=== PATIENT | female | born 1980 | race Caucasian/White ===

== ENCOUNTER 2019-08-19 05:33 | Day surgery (SDC) ==
[2019-08-13 15:43] LABS: BASO# 0.03 X1000 (0.0-0.2); BASO% 0.4 % (0.0-0.8); EOS# 0.12 X1000 (0.0-0.7); EOS% 1.6 % (0.0-10.0); HEMATOCRIT 41.5 % (37.0-47.0); HEMOGLOBIN 13.8 g/dL (12.0-16.0); LYMPH# 2.46 X1000 (1.2-3.4); LYMPH% 32.7 % (20.5-51.1); MCH 30.7 PG (27-31); MCHC 33.3 g/dL (33-37); MCV 92.2 FL (81-99); MONO# 0.38 X1000 (0.11-0.59); MONO% 5.1 % (1.7-9.3); NEUT# 4.53 X1000 (1.4-6.5); NEUT% 60.2 % (42.2-75.2); PLT 333 X1000 (130-400); RDW 12.5 % (11.5-14.5); WBC 7.52 X1000 (4.8-10.8)
--- NOTE | 2019-08-18 09:05 | HISTORY AND PHYSICAL ---
HISTORY: The patient is a 38-year-old female who had been followed by Mukul Watson , who is having worsening symptomatic pelvic organ prolapse. Upon evaluation she was found to have stage II prolapse with hypermobility of the urethrovesical neck greater than 45 degrees of rotation. However, she is also noted to be HIV positive and she is wishing to proceed with surgical intervention for correction of her prolapse. She refused pessary management. The risks and benefits of sacrocolpopexy with supracervical hysterectomy and mid urethral sling were explained at length and then again on a return visit at the patient's request. She is wishing to proceed with surgical intervention. PAST MEDICAL HISTORY: Negative for diabetes, hypertension, or asthma. Positive for bipolar disease and depressive syndrome and she is actually on disability because of this. PAST SURGICAL HISTORY: Positive for bilateral tubal ligation she is noted to be a para 1-0-0-1. ALLERGIES: Fluoroquinolones and sulfa. MEDICINES: Rizatriptan benzoate 10, spironolactone 50, sumatriptan 50, venlafaxine ER 150, Xi 180, Nexium 20, hydroxyzine 25, lamotrigine 150, [place] 5. [place] Thyroid 30, methocarbamol 50, and meloxicam 15. SOCIAL HISTORY: Positive for tobacco with daily 1 pack usage. Occasional ETOH. Negative for drugs. FAMILY HISTORY: Noncontributory. PHYSICAL EXAMINATION: GENERAL: Body mass index is 31. HEENT: Normocephalic, atraumatic. PERRLA. Extraocular movements are intact, no thyromegaly. CV: Regular rate and rhythm without murmur, gallop, or rub. PULMONARY: Clear to auscultation and percussion. ABDOMEN: Soft. : Shows pop to stage II prolapse. The leading edge is BA. However, point C is half way down the vaginal canal and she is wishing to proceed with surgical intervention.Neurologic: Afocal. Extremities: Without clubbing, cyanosis, or edema. ASSESSMENT AND PLAN: Patient with advanced prolapse, who is having dyspareunia and worsening pain is wishing to proceed with surgical intervention. The risks and benefits were discussed at length. She understands and is wishing to proceed with surgical intervention. cc: Ish Crump MD
[2019-08-19] MEDS ORDERED: KEFZOL 1 GM/D5W 2 GM/100 ML IVPB ONE (06:07)
[2019-08-19] MEDS ORDERED: REGLAN ONE (06:07)
[2019-08-19] MEDS ORDERED: PEPCID ONE (06:07)
[2019-08-19] MEDS ORDERED: LR 1,000 ML ONE ×3 (06:08→11:29)
[2019-08-19] MEDS ORDERED: XYLOCAINE-MPF 2% ONE (06:14)
[2019-08-19] MEDS ORDERED: DIPRIVAN 1% ONE (06:14)
[2019-08-19] MEDS ORDERED: VERSED ONE (06:22)
[2019-08-19] MEDS ORDERED: D10W 1,000 ML ONE (06:33)
[2019-08-19] MEDS ORDERED: METROGEL-VAGINAL 0.75% GEL ONE (06:33)
[2019-08-19] MEDS ORDERED: MARCAINE 0.25% PF/EPI 1:200,000 ONE (06:33)
--- NOTE | 2019-08-19 06:41 | H&P REVIEW ---
H&P Update H&P Review: H&P was reviewed and patient was examined, No change has occurred in the patient's condition
[2019-08-19] MEDS ORDERED: EPHEDRINE ONE (07:04)
[2019-08-19] MEDS ORDERED: FENTANYL ONE (07:14)
[2019-08-19] MEDS ORDERED: ZOFRAN ONE (07:18)
[2019-08-19] MEDS ORDERED: OFIRMEV 1000 MG/ISOTONIC SOLN 1,000 MG/100 ML BOTTLE ONE (07:18)
[2019-08-19] MEDS ORDERED: DECADRON ONE ×2 (07:18→07:47)
[2019-08-19] MEDS ORDERED: TORADOL ONE (07:20)
[2019-08-19] MEDS ORDERED: NEOSTIGMINE ONE (07:48)
[2019-08-19] MEDS ORDERED: ROBINUL ONE (07:48)
[2019-08-19 08:30] LABS: URINE SOURCE CATH
[2019-08-19 08:40] LABS: BILIRUBIN URINE NEGATIVE (NEGATIVE); BLOOD URINE NEGATIVE (NEGATIVE); COLOR YELLOW; GLUCOSE URINE NEGATIVE (NEGATIVE); KETONE URINE NEGATIVE (NEGATIVE); LEUKOCYTES URINE NEGATIVE (NEGATIVE); NITRITE URINE NEGATIVE (NEGATIVE); PH URINE 7.5; PROTEIN URINE NEGATIVE (NEGATIVE); TURBIDITY URINE CLEAR (CLEAR); UROBILINOGEN URINE NORMAL (NORMAL)
[2019-08-19 08:41] LABS: UR EPITHELIAL CELLS <10 /HPF (<10); URINE BACTERIA NEGATIVE /HPF; URINE RBC <10 /HPF (<10); URINE WBC <10 /HPF (<10)
[2019-08-19] MEDS ORDERED: KETAMINE ONE (09:24)
[2019-08-19] MEDS ORDERED: ZEMURON ONE ×2 (09:44)
[2019-08-19] MEDS ORDERED: LASIX ONE (10:07)
[2019-08-19] MEDS ORDERED: DILAUDID ONE (10:22)
[2019-08-19] MEDS ORDERED: ROBAXIN PO PRN (11:58)
[2019-08-19] MEDS ORDERED: MAXALT PO PRN (11:58)
[2019-08-19] MEDS ORDERED: IMITREX PO PRN (11:58)
[2019-08-19] MEDS: LR 1,000 ML IV SCH ×2 (13:24→18:59)
[2019-08-19] MEDS: TORADOL IV SCH ×2 (13:27→18:59)
[2019-08-19] MEDS: LAMICTAL PO SCH (15:43)
[2019-08-19] MEDS: ATARAX PO SCH ×2 (15:43→20:27)
[2019-08-19] MEDS: COLACE PO SCH ×2 (15:43→20:27)
[2019-08-19] MEDS: EFFEXOR PO SCH (15:45)
[2019-08-19] MEDS: PRILOSEC PO SCH (15:45)
[2019-08-19] MEDS: PERIDEX MT SCH ×2 (15:45→20:27)
[2019-08-19] MEDS: ALDACTONE PO SCH (15:45)
[2019-08-19] MEDS: NORCO-5 PO PRN (15:46)
--- NOTE | 2019-08-19 19:55 | OPERATIVE NOTE ---
PROCEDURE DATE: 08/19/2019 PREOPERATIVE DIAGNOSIS: Symptomatic pelvic organ prolapse. POSTOPERATIVE DIAGNOSIS: Symptomatic pelvic organ prolapse. PROCEDURE: DA Jennifer supracervical hysterectomy, abdominal sacrocolpopexy and mid urethral sling with Obtryx. SURGEON: Ish Crump MD. SECTION LEADER: Cj Robles. ESTIMATED BLOOD LOSS: 40 mL. HISTORY: The patient is a 38-year-old female who had been having increasing problems symptomatic pelvic organ prolapse who was admitted for surgical intervention. OPERATIVE PROCEDURE: Patient taken to operating room placed supine position. After adequate general anesthesia obtained she is placed in low Yellofin stirrups. Her abdomen and vagina was prepped and draped in the usual fashion. A supraumbilical incision was made after infiltration of local anesthetic 0.25% Marcaine with epinephrine and 12 mm port and sheath were introduced through this incision into the abdominal cavity. Pelvic contents were visualized therefore insufflation with CO2 an intraabdominal pressure 14 was performed. Left-sided ports placed under direct visualization after infiltration of local anesthetic and then the right-sided ports were placed in a similar fashion as well. Assistance port was noted to be on the right-hand side and this is an 11 mm port. At this time, the patient is placed in deep Trendelenburg position and EEA sizers were placed within the vagina and the anus and Alamo catheter was placed. Robot was docked. Hot scissors in the right hand, PK bipolar device was in the left hand and a single-tooth tenaculum was utilized in the 3rd arm. With the robot docked we then grasped the uterus at the fundus and elevated out of the pelvis. We then identified the distal portion of the fallopian tube on the left-hand side. Nursing services used the assistance port to elevate the fallopian tube away from the ovary. We clamped, cauterized and cut the mesosalpinx and continued in clamp, cauterize and cut fashion through the mesosalpinx, the uteroovarian pedicle, the round ligament and then down the cardinal ligament in a typical fashion to the peritoneal fold. We then began the anterior peritoneal dissection dropping the bladder below the operative site and opening more room for the ureter away from the uterine vessels. We then clamped and cauterized the vessels on the left-hand side at multiple sites. We then turned our attention towards the right hand side, again elevating the fallopian tube distally away from the ovary. We clamped, cauterized and cut the mesosalpinx and continued in a similar fashion through the uteroovarian pedicle, the round ligament and then down the cardinal ligament to the peritoneal fold. We continued our peritoneal dissection and dropped the ureter on the right-hand side below the operative site. We continued with the vesicovaginal dissection as well to drop the bladder below the cervical stump. At this time we clamped, cauterized and cut the vessels on the right-hand side then went back to left-hand side clamping, cauterizing, cutting the vessels along the left-hand side. We used a single blade of the hot scissors to begin cutting across the posterior portion of the uterus at the insertion of the uterosacral ligaments and continued until we had extirpation of the corpus of the uterus from the cervical stump. The corpus of the uterus was then placed in the appendiceal bed and we regrasped the cervical stump with the single-toothed tenaculum elevating it out of the pelvis this assisted with dissection of the vesicovaginal plane. We did this sharply with primarily sharp dissection and small amounts of cautery. We got all the way down close to the urethrovesical neck and opened our space laterally to provide placement of the mesh. We then turned our attention toward the posterior compartment, developed the rectovaginal space by scissoring the EEA sizers and opening this space. We cut into this area sharply and dissected down approximately 8 to 10 cm in the posterior compartment. We had approximately 8 to 10 cm in the anterior compartment as well. We then went up the sacral promontory. We repositioned the 3rd arm after changing it out to Cardiere grasper. We deviated the descending colon laterally exposing the midportion of the sacral promontory. We elevated the peritoneum above this, opened this area sharply were able to dissect down easily to the anterior longitudinal ligament. We then created our tunnel extending from the ligament all the way down between the colon on the right-hand side and the ureter on the right-hand side to our prior dissection in the posterior compartment. We then left the console and trimmed our mesh in the appropriate fashion. We had approximately 8 cm anteriorly and approximately 8 cm posteriorly. We placed the mesh intraperitoneally and starting in the vesicovaginal space we secured the mesh to the anterior vaginal mucosa with interrupted 2.0 [place]- Brandin sutures. All suture knots were thrown with initial surgeon's throw and 4 half throws after this. We placed approximately 12 knots anteriorly, 2 knots across the cervical stump and then approximately 8 to 10 sutures in the posterior compartment securing the mesh smoothly in all compartments. Third arm was brought up to the sacral promontory and using the EEA sizer to elevate the cervix towards the promontory we placed 2 sutures through the 3rd arm of the mesh into the anterior longitudinal ligament paying attention to the vasculature as well as to the depth of the needle to not cause injury to any of the disk or any of the nerves in that area. Two sutures easily placed and excessive mesh was trimmed for the 3rd arm. We then turned our attention towards reperitonealization using a V-Loc suture and starting at the promontory. We closed the peritoneum across the third arm down to the bifurcation. We then pursestring sutured anterior to posterior closing all the space around the 2 distal arms. We then trimmed off excessive suture. Copious amounts irrigation was performed, hemostasis was observed throughout. We brought the corpus of uterus down into the pelvis and then undocked the robot removing the robot. We changed our equipment to a grasper in 1 port and then the morcellator was placed in the assistance port and it was placed under direct visualization. Maintaining visualization of the blade throughout we morcellated the corpus of the uterus with approximately 3 to 4 large pieces. We saw 2 smaller pieces that were easily removed. We again performed copious amounts irrigation and hemostasis was continued to be observed. Decision was made to terminate this portion the procedure. We used a Tomas-Randal closure system to close the fascia and deep layers of both the camera port and the assistance port and after deflating the abdomen of all the CO2, the remaining skin incisions as well as those 2 skin incisions were closed with 4-0 Vicryl ligature in subcuticular fashion by nursing services, surgical glue was placed. Vaginally we performed examination noting excellent support apically, anteriorly and posteriorly. The urethra was grasped proximally and distally with Allis clamps and approximately 8-10 mL of the same local anesthetic was injected for hydrodissection. A sagittal incision was made. We dissected up towards the 10 o'clock and 2 o'clock position for the ischial pubic ramus and identification of the obturator canal. Based on the bony landmarks of the ischial pubic ramus and the insertion the adductor longus a stab incision was initially made on the left-hand side. The halo device was introduced through this incision through the obturator canal to the engine room operator's finger which directed the needle out. The mesh was attached to it, was retracted back through the skin. This was performed on the contralateral side in a similar fashion. Cystoscope was then placed within the bladder. The Alamo catheter had already been removed. The bladder was filled approximately 250, 300 mL of D10. Both ureters were effluxing well. There was no evidence of any abnormalities within the bladder mucosa. There was no evidence of any suture placement. There was no evidence of any mesh from the sling. Cystoscope was removed and Shahida clamp was placed midurethral position. Tape was brought up with Shahida clamp, blue tag was excised and sheaths were easily removed. There was no tension on the midurethral sling whatsoever. The midurethral incision was closed with running locking 2-0 Vicryl ligature. Sponge count, needle counts correct x3. The Alamo catheter was replaced. The patient was taken out of the low adjustable stirrups, she was awakened, taken recovery room with vital signs stable. cc: Ish Crump MD
[2019-08-19] MEDS ORDERED: ZOFRAN ODT PO PRN (19:56)
--- NOTE | 2019-08-19 20:36 | PROGRESS NOTE ---
DATE: 08/19/2019 TIME: 4:30 p.m. SUBJECTIVE: Patient is alert and oriented x2. Afebrile. Vital signs stable. Urine output is adequate and clear. Incisions are dry. ASSESSMENT AND PLAN: Routine postoperative care. We will plan on discharge in a.m. after a voiding trial. cc: Ish Crump MD
[2019-08-19] MEDS ORDERED: PROMETRIUM PO SCH (21:00)
[2019-08-20] MEDS: TORADOL IV SCH ×2 (01:20→06:38)
[2019-08-20] MEDS: LR 1,000 ML IV SCH ×2 (01:20→05:51)
[2019-08-20 07:49] VITALS: BP 118/69
[2019-08-20] MEDS: LAMICTAL PO SCH (09:11)
[2019-08-20] MEDS: PERIDEX MT SCH (09:11)
[2019-08-20] MEDS: COLACE PO SCH (09:12)
[2019-08-20] MEDS: ALDACTONE PO SCH (09:12)
[2019-08-20] MEDS: PRILOSEC PO SCH (09:12)
[2019-08-20] MEDS: EFFEXOR PO SCH (09:13)
[2019-08-20] MEDS: ATARAX PO SCH (09:13)
[2019-08-20] MEDS: NORCO-5 PO PRN (09:49)
--- NOTE | 2019-08-21 06:05 | DISCHARGE SUMMARY ---
ADMISSION DATE: 08/19/2019 DISCHARGE DATE: 08/20/2019 PRINCIPAL DIAGNOSIS: Pelvic organ prolapse. PROCEDURE: Robotic abdominal sacrocolpopexy with supracervical hysterectomy and abdominal sacrocolpopexy. HISTORY: The patient is a 38-year-old female who had been managed in the past conservatively and is now wishing to proceed to surgical correction of her pelvic organ prolapse. The risks and benefits of this have been explained at length and she wished to proceed. HOSPITAL COURSE: Patient underwent the above-stated procedure. Blood loss at time was approximately 50 mL. Postoperative course has been uncomplicated. She is currently undergoing voiding trial, and will be discharged home with instructions for followup in 3 weeks. DISCHARGE MEDICATIONS: [place] and Colace. DISCHARGE DIET AND ACTIVITY: She was instructed on regular diet and decreased activity. cc: Ish Crump MD
== END 2019-08-20 11:41 | disposition home or self-care (01) ==
LOC: OR 05:33 → 4N 05:33 → OR 08-20 11:41
PROVIDERS: ATTEND Obstetrics & Gynecology